=== PATIENT | female | born 1935 | race Caucasian/White ===

== ENCOUNTER 2021-09-10 11:06 | Day surgery (SDC) | payer MEDICARE, OTHER ==
[~2021-09-10 11:06] MED LIST: Lactated Ringers 1,000 ML IV SCH; Lidocaine 1%/Sod Bicarbonate in NS 8.4% 1 ML Syringe IDERM PRN; Sodium Chloride 0.9% 10 ML Syringe FLUSH PRN
[2021-09-10] MEDS ORDERED: Propofol 200 MG/20 ML SDV ONE (12:46)
[2021-09-10] MEDS ORDERED: fentaNYL 100 MCG/2 ML SDV ONE (12:46)
[2021-09-10] MEDS ORDERED: Lidocaine 1% 4 ML ONE (12:48)
--- NOTE | 2021-09-10 13:32 | PCM.OPNOTE ---
- General Post-Op/Procedure Note Date of Surgery/Procedure: 09/10/21 Operative Procedure(s): EGD Findings: 1. Long segment Garvin's esophagus 2. Large hiatal hernia 3. Gastric polyps 4. Gastritis Pre Op Diagnosis: Garvin's esophagus Post-Op Diagnosis: same Anesthesia Technique: MAC Primary Surgeon: Ginna Lyle Anesthesia Provider: Evgeny Escobar Pathology: 1. gastric antrum biopsies 2. Distal esophagus biopsies at 30cm 3. Esophagus biopsies at 28cm 4. Esophagus biopsies at 26cm 5. Esophagus biopsies at 24cm 6. Esophagus biopsies at 22cm 7. Esophagus biopsies at 20cm 8. Esophagus biopsies at 18cm Fluid Replacement, Intraop: 500 Output, Urine Amount: 0 EBL in mLs: 0 Complications: none apparent Condition: Good
--- NOTE | 2021-09-10 13:36 | PCM.PRNOTE ---
- Free Text/Narrative Note: Operative Report Date of procedure: September 10, 2021 Preoperative diagnosis: Garvin's esophagus Postoperative diagnosis: same Surgeon: Ginna Lyle M.D. Procedure: EGD Anesthesia: MAC Manager Math: Evgeny Escobar CRNA IV fluids: 500 mL Estimated blood loss: 0 mL Findings: 1. Long segment Garvin's esophagus 2. Large hiatal hernia 3. Gastric polyps 4. Gastritis Specimens: 1. Gastric antrum biopsies 2. Distal esophagus biopsies at 30cm 3. Esophagus biopsies at 28cm 4. Esophagus biopsies at 26cm 5. Esophagus biopsies at 24cm 6. Esophagus biopsies at 22cm 7. Esophagus biopsies at 20cm 8. Esophagus biopsies at 18cm Indication: The patient is an 86 -year-old lady who presented with history of Garvin's esophagus. The patient was consented for an EGD with intervention for surveillance. Risk of bleeding and perforation were discussed. The patient's consent was obtained Description of the procedure: The patient was taken to the endoscopy suite and placed on hemodynamic monitoring. The nurse merchandising lead induced MAC anesthesia. A bite block was placed. The patient was positioned in the left lateral decubitus position. A timeout was performed. The endoscope was gently placed into the mouth to the back of the pharynx and introduced into the esophagus. The scope was gently advanced under direct visualization down to the level of the lower esophageal sphincter. The stomach was then entered. Normal rugal folds were noted. The scope was advanced into the antrum. We noted linear erythema consistent with gastritis. The pylorus was then entered and the first and second portion of the duodenum was inspected. There were no ulcerations in the duodenum. The scope was withdrawn and biopsies were taken in the antrum with a cold biopsy forceps The scope was then retroflexed in the cardia and fundus were investigated. A large hiatal hernia was noted. There were scattered benign appearing polyps. No other abnormalities were noted. The scope was then withdrawn while inspecting the esophagus. A long segment of Garvin's esophagus was identified from 30cm to 18cm. The mucosa was biopsied in four quadrants at 2cm intervals. There was no esophagitis. The procedure was terminated. the patient tolerated the procedure well without any evidence of complications. Ginna Lyle MD General Surgery
[2021-09-10 15:29] VITALS: BP 145/75; PULSE 70
== END 2021-09-10 14:51 | disposition home or self-care (01) ==
LOC: JD.SDS 11:06
PROVIDERS: ATTEND Surgery
DX: K22.70 Barrett's esophagus without dysplasia (principal); K29.50 Unspecified chronic gastritis without bleeding; K20.0 Eosinophilic esophagitis; K44.9 Diaphragmatic hernia without obstruction or gangrene; K31.7 Polyp of stomach and duodenum; E03.9 Hypothyroidism, unspecified; G47.30 Sleep apnea, unspecified; Z98.890 Other specified postprocedural states; Z79.890 Hormone replacement therapy; Z79.899 Other long term (current) drug therapy; Z88.8 Allergy status to other drugs, medicaments and biological substances
CPT/HCPCS: 43239; 88305; 88342; J2704; J3010; J7120; 00731; 99100